=== PATIENT | female | born 1980 | race Caucasian/White ===

== ENCOUNTER 2023-04-24 02:23 | Emergency (ER) | payer BC ==
[2023-04-24] MEDS: Orphenadrine 60 MG/2 ML Inj IM ONE (02:33)
[2023-04-24] MEDS: Ketorolac 30 MG/ML SDV IM ONE (02:34)
[2023-04-24 02:58] LABS: APPEARANCE,URINE CLEAR; BILIRUBIN,URINE NEGATIVE (NEGATIVE); COLOR,URINE YELLOW; GLUCOSE,URINE NEGATIVE (NEGATIVE); KETONES,URINE NEGATIVE (NEGATIVE); LEUKOCYTE ESTERASE,URINE NEGATIVE (NEGATIVE); NITRITE,URINE NEGATIVE (NEGATIVE); OCCULT BLOOD,URINE NEGATIVE (NEGATIVE); PH,URINE 5.5 (5.0-9.0); PROTEIN,URINE NEGATIVE (NEGATIVE); UROBILINOGEN,URINE 0.2 E.U./dL (0.2-1.0)
== END 2023-04-24 03:15 | disposition home or self-care (01) ==
LOC: LL.ED 02:23
DX: M54.50 Low back pain, unspecified (principal)
CPT/HCPCS: 81003; 96372; 99283; J1885; J2360